=== PATIENT | female | born 1985 | race African-American/Black ===

== ENCOUNTER → 2023-11-28 | Outpatient (CLI) | payer OTHER, SELFPAY ==
--- NOTE | 2023-11-28 12:47 | RAD_ITS ---
STUDY: X-RAY - LEFT HAND REASON FOR EXAM: Female, 38 years old. Work injury. TECHNIQUE: 3 view(s) of the hand. COMPARISON: None. FINDINGS: Normal radiocarpal articulation. Normal distal radioulnar joint. Normal visualized carpal bones. Normal carpal articulations Normal carpometacarpal articulation of the thumb. Normal second through fifth carpometacarpal joints. Normal metacarpi. Normal metacarpophalangeal joint of the thumb. Normal interphalangeal joint of the thumb. Normal proximal and distal phalanges of the thumb. Normal metacarpophalangeal joints of the second through fifth fingers. Normal proximal and distal interphalangeal joints of the second through fifth fingers. Normal phalanges of the second through fifth fingers. Soft tissue swelling RAD/Hand Min 3 Views IMPRESSION: Soft tissue swelling. Electronically Signed: Anoop Joshua MD at 13:52 EDT ,
--- NOTE | 2023-11-28 12:47 | RAD_ITS ---
STUDY: X-RAY - LEFT WRIST REASON FOR EXAM: Female, 38 years old. Injury TECHNIQUE: 3 view(s) of the wrist were obtained. COMPARISON: None. FINDINGS: Normal visualized distal radius and ulna. Normal radiocarpal articulation. Normal distal radioulnar articulation. Normal carpal bones. Normal carpal articulations. Normal carpometacarpal articulation of the thumb. Normal second through fifth carpometacarpal articulations. Normal visualized metacarpal bones. The soft tissue structures are unremarkable. RAD/Wrist min 3 Views IMPRESSION: Normal x-ray examination of the wrist. Electronically Signed: Anoop Joshua MD at 13:54 EDT ,
== END | disposition home or self-care (01) ==
LOC: MTRAD 12:47
PROVIDERS: Referring Provider Physician Assistant Medical; Visit Provider Physician Assistant Medical
DX: T14.90XA Injury, unspecified, initial encounter (principal)
CPT/HCPCS: 73110; 73130

== ENCOUNTER 2024-01-06 10:27 | Emergency (ER) | payer MEDICAID, SELFPAY ==
[2024-01-06 10:28] VITALS: BP 159/100; PULSE 67; RESP 18; TEMP 36.4; O2SAT 100
--- NOTE | 2024-01-06 10:31 | NURSING ---
NO OLD EKGS
[2024-01-06 10:41] VITALS: O2SAT 98
--- NOTE | 2024-01-06 10:41 | EKG12_ITS ---
Test Reason : CP Blood Pressure : / mmHG Vent. Rate : 070 BPM Atrial Rate : 070 BPM P-R Int : 138 ms QRS Dur : 076 ms QT Int : 384 ms P-R-T Axes : 045 017 032 degrees QTc Int : 414 ms Normal sinus rhythm Normal ECG Confirmed by Flaquito Arango ([id number]), society editor ANIBAL JENKINS ([id number]) on 01/08/2024 10:29:23 AM Referred By: Confirmed By:Flaquito Arango
--- NOTE | 2024-01-06 10:45 | NURSING ---
NO OLD EKGS
--- NOTE | 2024-01-06 10:47 | ED.VIS.CHEST ---
HPI History of Present Illness Chief Complaint: Chest Pain Narrative Narrative: 38-year-old female who denies significant past medical history presents with chest pain that she has had intermittently over the last few weeks. States at times she will feel pressure in her chest. She has an occasional cough as well but states is not really a cough. She has to clear her throat and she produces mucus from it. No fevers or chills, no nausea or vomiting. She states she has intermittent headaches as well. She states she presents to the emergency department because she does not have a primary care provider, and wants to see what is wrong with her. [facility] Medical History Contusion of left thumb Home Medications ?Medication ?Instructions ?Recorded ?Last Taken ?Type NK 11/28/23 Unknown History Allergy/AdvReac Type Severity Reaction Status Date / Time No Known Allergies Allergy Verified 01/06/24 10:27 Social History Smoking Status: Never smoker ROS ROS ED ROS Narrative Constitutional: No fever, no chills. HEENT: No sore throat. No neck pain. No loss of vision. No rhinorrhea. Cardiovascular: Positive midsternal chest pressure/chest pain. Intermittent. None today. Last episode of chest pain was yesterday. No palpitations. No pedal edema. Respiratory: Occasional cough, has to clear her throat and produces mucus. No shortness of breath. Abdominal: No abdominal pain. No nausea. No vomiting. Genitourinary: No dysuria. No hematuria. Musculoskeletal: No myalgias. No arthralgias. Neurologic: Positive headaches. No dizziness. No lightheadedness. Skin: No rash. No change in color. Psychiatric: No depression. No anxiety. EXAM Physical Exam Narrative Exam Narrative: Afebrile. Vital signs noted. HEENT: Normocephalic. Atraumatic. PERRL, EOMI. Neck soft and supple. No point tenderness or step off. Cardiovascular: Regular rate and rhythm. No murmurs, rubs, or gallops appreciated. Respiratory: No tachypnea. Lungs clear to auscultation bilaterally. Gastrointestinal: Abdomen soft, nontender, with normoactive bowel sounds. No rebound or guarding. Neurological: Awake. Alert. Nonfocal, nonlateralizing. Skin: No rash. Normal color. No pallor. Musculoskeletal: No pedal edema. Full range of motion extremities. Const Vital Signs: 01/06/24 10:28 01/06/24 10:41 Temperature 97.5 F L Temperature Source Temporal Pulse Rate 67 Respiratory Rate 18 Blood Pressure 159/100 H Blood Pressure Mean 119 Pulse Ox 100 98 Oxygen Delivery Method Room Air Room Air MDM MDM MDM Narrative Medical decision making narrative: Differential diagnosis includes but not limited to ACS versus pulmonary embolism versus pneumonia versus pneumothorax. She may also be having hypertension exacerbation. Initially her blood pressure was 159/100 without evidence of previous diagnosis of hypertension. Pulse ox is 100% on room air and her pulse is 60 so I have low suspicion for pulmonary embolism and I do not feel that D-dimer is indicated as she is PERC negative. She denies any coronary artery disease risk factors. EKG was obtained and interpreted by self which demonstrates normal sinus rhythm at 70 bpm without ectopy or acute ST changes. No STEMI. I reviewed her laboratory work and she has normal white count of 5.4, hemoglobin normal at 13.6, platelet count normal at 192. Electrolyte panel is significant for an anion gap low at 3 with a glucose of 89. Lipase is normal at 36 so I doubt pancreatitis. Her high-sensitivity troponin is less than 3. I do not feel she needs serial enzymes as she is not currently having chest pain and her last chest pain was yesterday, over 6 hours ago. Chest x-ray 1 view interpreted by myself independently shows no evidence of any acute process, no pneumothorax, no pneumonia. I reviewed the radiology report which confirms my independent interpretation. At this point in time, she does have fluctuating blood pressure but is asymptomatic with it. I feel she can be discharged to follow-up with her primary care provider, who can confirm hypertension in the future. Hence, I do not feel that she requires being started on medication for elevated blood pressure reading currently. Patient was reassured. Return instructions to the emergency department were reviewed. Disposition is discharged home in stable condition. History & Record Review Discussion w/independent historian: Patient Lab Data Attestation: I reviewed the patient's lab results. Labs: Laboratory Results - last 24 hr 01/06/24 11:04 WBC 5.4 RBC 4.32 Hgb 13.6 Hct 39.9 MCV 92.4 MCH 31.5 MCHC 34.1 RDW Std Deviation 39.3 RDW Coeff of Mary 11.5 L Plt Count 192 MPV 10.1 Immature Gran % (Auto) 0.200 Neut % (Auto) 46.0 L Lymph % (Auto) 33.1 Quay % (Auto) 13.3 H Eos % (Auto) 6.3 H Baso % (Auto) 1.1 H Absolute Neuts (auto) 2.5 Absolute Lymphs (auto) 1.79 Nucleated RBC % 0 Sodium 138 Potassium 4.2 Chloride 107 Carbon Dioxide 28.0 Anion Gap 3 L BUN 18 Creatinine 1.01 Estim Creat Clear Calc 77.74 Est GFR (MDRD) Af Amer 79 Est GFR (MDRD) Non-Af 66 BUN/Creatinine Ratio 17.8 Glucose 89 Calcium 9.3 Troponin I High Sens < 3 L Lipase 36 Radiography Chest X-Ray - ED: 1 View, Read by ED Physician and Read by Radiologist Diagnostic Testing: Clinical Impression(s) from Imaging Studies Chest X-Ray 01/06/24 10:48 IMPRESSION: No radiographic evidence of acute cardiopulmonary disease. Electronically Signed: Santiago Campso MD at 11:41 EDT Reading Location ID and State: [facility] / [place] , Service support , Discharge Plan Triage Chief Complaint: Chest Pain ED Provider: Santiago Cruz Dx/Rx/DC Orders Clinical Impression: Chest pain, Elevated blood pressure reading Instructions: ED Chest Pain, Uncertain Cause, ED Hypertension, To Be Confirmed Prescriptions: No Action NK Primary Care Provider: Care Physician,No Primary Referrals: Fili Baker MD [Med Staff - Active Staff] - As soon as possible Care Physician,No Primary [Primary Care Provider] - Activity Restrictions/Additional Instructions: Return with increasing chest pain, shortness of breath, new or worsening symptoms. Print Language: Turkmen Disposition Disposition: Home, Self Care
--- NOTE | 2024-01-06 10:48 | RAD_ITS ---
EXAM: XR CHEST, 1 VIEW CLINICAL INDICATION: chest pain TECHNIQUE: Frontal view of the chest. COMPARISON: No relevant prior studies available. FINDINGS: LUNGS AND PLEURAL SPACES: Unremarkable. No consolidation or edema. No pneumothorax. No effusion. HEART: Unremarkable. Cardiac silhouette not enlarged. MEDIASTINUM: Central airways and mediastinal contour are unremarkable. BONES/JOINTS: Unremarkable. No acute fracture. SOFT TISSUES: Unremarkable. RAD/Chest 1 View (Portable) IMPRESSION: No radiographic evidence of acute cardiopulmonary disease. Electronically Signed: Santiago Campos MD at 11:41 EDT ,
[2024-01-06 11:08] LABS: Absolute Lymphocyte Count 1.79 X10^3/uL (0.83-4.51); Absolute Neutrophil Count 2.5 X10^3/uL (2.0-7.7); Basophil# 0.06 X10^3/uL; Basophil% 1.1 % (0-1); Eosinophil# 0.34 X10^3/uL; Eosinophils% 6.3 % (0-5); Hematocrit 39.9 % (37-47); Hemoglobin 13.6 g/dL (12.0-15.0); Lymphocyte # 1.79 X10^3/ul (0.83-4.51); Lymphocyte % 33.1 % (19-41); Mean Corp Hgb Conc 34.1 g/dL (32-36); Mean Corpuscular Hgb 31.5 pg (27.0-32.0); Mean Corpuscular Volume 92.4 fL (81-99); Mean Platelet Vol. 10.1 fl (6.2-12.0); Monocyte# 0.72 X10^3/uL; Monocyte% 13.3 % (0-10); NRBC Flagged by Analyzer 0 % (0-5); Neutrophil # 2.48 X10^3/uL (2.7-7.7); Platelet Count 192 K/mm3 (150-450); RBC Distribution Width CV 11.5 % (11.6-14.6); RBC Distribution Width SD 39.3 fl (35.1-43.9); Red Blood Count 4.32 M/mm3 (4.2-5.4); White Blood Count 5.4 K/mm3 (4.4-11.0)
[2024-01-06 11:32] LABS: Anion Gap 3 (5-15); BUN 18 mg/dL (7-18); BUN/Creat Ratio 17.8 RATIO (10-20); Calcium,Total 9.3 mg/dL (8.5-10.1); Chloride 107 mmol/L (98-107); Creatinine, Serum 1.01 mg/dL (0.55-1.02); EST Glomerular Filtration Rate 66 mL/min (>60); Est Glom Filt Rate - Afr Amer 79 mL/min (>60); Estimated Creatinine Clearance 77.74 ml/min; Glucose 89 mg/dL (74-106); Lipase 36 U/L (13-75); Potassium 4.2 mmol/L (3.5-5.1); Sodium Level 138 mmol/L (136-145); Troponin-I HS < 3 pg/mL (3.0-54.0)
[2024-01-06 11:59] VITALS: BP 165/99; PULSE 69; RESP 19; TEMP 36.7; O2SAT 100
== END 2024-01-06 12:02 | disposition home or self-care (01) ==
PROVIDERS: Emergency Provider Emergency Medicine; Visit Provider Emergency Medicine
DX: R07.9 Chest pain, unspecified (principal); R03.0 Elevated blood-pressure reading, without diagnosis of hypertension
CPT/HCPCS: 71045; 80048; 83690; 84484; 85025; 93005; 99283; A4216

== ENCOUNTER 2024-08-17 14:32 | Emergency (ER) | payer MEDICAID, SELFPAY ==
[2024-08-17 14:33] VITALS: BP 165/60; PULSE 64; RESP 15; TEMP 36.2; O2SAT 100; BMI 28.8
--- NOTE | 2024-08-17 14:53 | ED.VIS.CHEST ---
HPI <NIDIA Herrera - Last Filed: 08/17/24 16:38> History of Present Illness Chief Complaint: Chest Other Narrative Narrative: Patient presenting today with concerns for gastric reflux that she has had over the past week. She reports that she occasionally has a midsternal burning sensation that radiates into her throat, she will frequently develop white-colored mucus in the back of her throat that she has to cough up. Her symptoms are worse when she is hungry and has not eaten in several hours, she also will have intermittent epigastric abdominal pain. She denies having any abdominal pain at this time. She does admit to eating a lot of spicy and fried foods. She denies fevers, chills, stool changes, melena, shortness of breath, nausea, and vomiting. PE Risk Factors: Negative for Recent Travel/Surgery, Recent Immobilization, Prior DVT or PE or Cancer PFS <NIDIA Herrera - Last Filed: 08/17/24 16:38> [facility] Medical History Contusion of left thumb Home Medications ?Medication ?Instructions ?Recorded ?Last Taken ?Type pantoprazole 40 mg tablet,delayed 40 mg PO DAILY #30 tabs 08/17/24 Unknown Rx release (Protonix) Allergy/AdvReac Type Severity Reaction Status Date / Time No Known Allergies Allergy Verified 08/17/24 14:36 Social History Smoking Status: Never smoker ROS <NIDIA Herrera - Last Filed: 08/17/24 16:38> ROS ED Constitutional Constitutional ED: Denies chills or fever(s) Cardiovascular Cardiovascular: Denies chest pain or palpitations Respiratory/Chest Respiratory/Chest: Denies dyspnea Gastrointestinal Gastrointestinal: Reports heartburn; Denies abdominal pain, constipation, diarrhea, melena, nausea or vomiting Genitourinary Genitourinary ED: Denies dysuria, hematuria or urinary urgency Musculoskeletal Musculoskeletal: Denies arthralgias or myalgias Integumentary Denies rash Neurologic Neurologic: Denies weakness EXAM <NIDIA Herrera - Last Filed: 08/17/24 16:38> Physical Exam Const Vital Signs: 08/17/24 14:33 08/17/24 14:48 08/17/24 16:29 Temperature 97.2 F L 98 F Temperature Source Temporal Pulse Rate 64 63 Respiratory Rate 15 15 Respiratory Effort Normal Respiratory Pattern Normal Blood Pressure 165/60 H 165/85 H Blood Pressure Mean 95 111 Pulse Ox 100 100 Oxygen Delivery Method Room Air Positive well nourished, well developed and no apparent distress General Appearance ED: well developed HEENT Reports normocephalic and head/scalp atraumatic Mouth ED: Yes moist mucous membranes normal Eyes PERRL and EOMs intact bilaterally Neck full ROM and supple Chest Wall inspection of chest normal Resp normal respiratory effort and clear to auscultation bilaterally Cardio regular rate and regular rhythm GI soft to palpation, non-tender, non-distended and no masses Back/Spine normal ROM and normal to inspection Extremity normal to inspection and full ROM Neuro oriented x3, CN's II-XII intact bilaterally, moves all extremities, no focal motor deficits and no sensory deficits noted Sensorium / Orientation: awake and alert Psych mental status grossly normal and thought process normal Skin no rashes or lesions noted and no wounds <Dr. Tylor Richard DO - Last Filed: 08/17/24 17:30> Physical Exam Const Vital Signs: 08/17/24 14:33 08/17/24 14:48 08/17/24 16:29 Temperature 97.2 F L 98 F Temperature Source Temporal Pulse Rate 64 63 Respiratory Rate 15 15 Respiratory Effort Normal Respiratory Pattern Normal Blood Pressure 165/60 H 165/85 H Blood Pressure Mean 95 111 Pulse Ox 100 100 Oxygen Delivery Method Room Air [facility] <NIDIA Herrera - Last Filed: 08/17/24 16:38> [facility] Narrative Medical decision making narrative: Patient presenting today due to gastric reflux she has had intermittently over the past week. She reports a midsternal burning sensation that radiates into the back of her throat, she develops a lot of mucus in the back of her throat that she has to cough up. Her symptoms are worse when her stomach is empty and occasionally after eating. She does admit to eating a lot of spicy and fried foods. Her pain does not sound cardiac in nature, she is PERC negative, low suspicion for PE. Examination does sound consistent with gastric reflux. She occasionally has epigastric abdominal pain but denies having any abdominal pain at this time, her abdomen is soft and nontender. CBC and CMP were obtained and are unremarkable. She was given a GI cocktail and Pepcid and reports improvement of her symptoms on reexamination. I will give her a prescription for Protonix. Dietary modifications were discussed with her, recommended she not eat anything at least 3 hours before bed. She does not have a PCP but I have given her a referral for one and recommended she call Monday to set up a appointment. She will be discharged home in stable condition. Lab Data Attestation: I reviewed the patient's lab results. Labs: Laboratory Results - last 24 hr 08/17/24 15:21 WBC 6.1 RBC 4.00 L Hgb 12.9 Hct 37.8 MCV 94.5 MCH 32.3 H MCHC 34.1 RDW Std Deviation 41.1 RDW Coeff of Mary 11.8 Plt Count 185 MPV 11.0 Immature Gran % (Auto) 0.200 Neut % (Auto) 46.9 L Lymph % (Auto) 36.7 Ferry % (Auto) 9.7 Eos % (Auto) 5.3 H Baso % (Auto) 1.2 H Absolute Neuts (auto) 2.9 Absolute Lymphs (auto) 2.23 Nucleated RBC % 0 Sodium 139 Potassium 3.9 Chloride 104 Carbon Dioxide 27.0 Anion Gap 9 BUN 14 Creatinine 1.07 Estim Creat Clear Calc 71.94 Est GFR (MDRD) Non-Af 69 BUN/Creatinine Ratio 13.1 Glucose 90 Calcium 9.4 Total Bilirubin 0.29 AST 23 ALT 13 Alkaline Phosphatase 67 Total Protein 7.2 Albumin 4.1 Globulin 3.0 Albumin/Globulin Ratio 1.4 <Dr. Tylor Richard, DO - Last Filed: 08/17/24 17:30> [facility] Narrative Medical decision making narrative: Patient presenting today due to gastric reflux she has had intermittently over the past week. She reports a midsternal burning sensation that radiates into the back of her throat, she develops a lot of mucus in the back of her throat that she has to cough up. Her symptoms are worse when her stomach is empty and occasionally after eating. She does admit to eating a lot of spicy and fried foods. Her pain does not sound cardiac in nature, she is PERC negative, low suspicion for PE. Examination does sound consistent with gastric reflux. She occasionally has epigastric abdominal pain but denies having any abdominal pain at this time, her abdomen is soft and nontender. CBC and CMP were obtained and are unremarkable. She was given a GI cocktail and Pepcid and reports improvement of her symptoms on reexamination. I will give her a prescription for Protonix. Dietary modifications were discussed with her, recommended she not eat anything at least 3 hours before bed. She does not have a PCP but I have given her a referral for one and recommended she call Monday to set up a appointment. She will be discharged home in stable condition. Supervisory Physician Note Patient was seen and examined with the Advanced Practice Provider. Nursing notes and vital signs have been reviewed. Pertinent old records have been reviewed. I agree with the essential elements of the KUN's history, physical exam, assessment, and plan. The differential diagnosis and management options were discussed with the KUN. I participated in determining and agree with the management, procedures, final impression and disposition as documented. See changes noted by me. Please see addendum or separate note for any additional details. Impression: 1. GERD Lab Data Labs: Laboratory Results - last 24 hr 08/17/24 15:21 WBC 6.1 RBC 4.00 L Hgb 12.9 Hct 37.8 MCV 94.5 MCH 32.3 H MCHC 34.1 RDW Std Deviation 41.1 RDW Coeff of Mary 11.8 Plt Count 185 MPV 11.0 Immature Gran % (Auto) 0.200 Neut % (Auto) 46.9 L Lymph % (Auto) 36.7 Ferry % (Auto) 9.7 Eos % (Auto) 5.3 H Baso % (Auto) 1.2 H Absolute Neuts (auto) 2.9 Absolute Lymphs (auto) 2.23 Nucleated RBC % 0 Sodium 139 Potassium 3.9 Chloride 104 Carbon Dioxide 27.0 Anion Gap 9 BUN 14 Creatinine 1.07 Estim Creat Clear Calc 71.94 Est GFR (MDRD) Non-Af 69 BUN/Creatinine Ratio 13.1 Glucose 90 Calcium 9.4 Total Bilirubin 0.29 AST 23 ALT 13 Alkaline Phosphatase 67 Total Protein 7.2 Albumin 4.1 Globulin 3.0 Albumin/Globulin Ratio 1.4 Discharge Plan Triage Chief Complaint: Chest Other ED Midlevel Provider: Heather Echeverria ED Provider: Tylor Richard Dx/Rx/DC Orders Clinical Impression: GERD (gastroesophageal reflux disease) Instructions: ED GERD (Adult) Prescriptions: New pantoprazole [Protonix] 40 mg tablet,delayed release (DR/EC) 40 mg PO DAILY Qty: 30 0RF Primary Care Provider: Care Physician,No Primary Referrals: Sharla Weeks DO [Med Staff - Application Development Director] - 1 Week Care Physician,No Primary [Primary Care Provider] - Activity Restrictions/Additional Instructions: Please follow-up with a PCP and return for any worsening symptoms. Please try to avoid spic and greasy foods. Try not to eat less than 3 hours before bed. Print Language: Spanish Disposition Disposition: Home, Self Care Discharge Date/Time: 08/17/24 16:30
[2024-08-17] MEDS: Famotidine 20 MG Tablet PO (14:58)
[2024-08-17] MEDS: Mag Hydrox/Al Hydrox/Simeth 30 ML UDC PO (14:59)
[2024-08-17] MEDS: Lidocaine 2% Viscous15 ML UDC 15 ML PO (14:59)
[2024-08-17 15:28] LABS: Absolute Lymphocyte Count 2.23 X10^3/uL (0.83-4.51); Absolute Neutrophil Count 2.9 X10^3/uL (2.0-7.7); Basophil# 0.07 X10^3/uL; Basophil% 1.2 % (0-1); Eosinophil# 0.32 X10^3/uL; Eosinophils% 5.3 % (0-5); Hematocrit 37.8 % (37-47); Hemoglobin 12.9 g/dL (12.0-15.0); Lymphocyte # 2.23 X10^3/ul (0.83-4.51); Lymphocyte % 36.7 % (19-41); Mean Corp Hgb Conc 34.1 g/dL (32-36); Mean Corpuscular Hgb 32.3 pg (27.0-32.0); Mean Corpuscular Volume 94.5 fL (81-99); Monocyte# 0.59 X10^3/uL; Monocyte% 9.7 % (0-10); NRBC Flagged by Analyzer 0 % (0-5); Neutrophil # 2.85 X10^3/uL (2.7-7.7); Neutrophil % 46.9 % (47-70); Platelet Count 185 K/mm3 (150-450); RBC Distribution Width CV 11.8 % (11.6-14.6); RBC Distribution Width SD 41.1 fl (35.1-43.9); White Blood Count 6.1 K/mm3 (4.4-11.0)
[2024-08-17 15:57] LABS: ALB/GLOB Ratio 1.4 RATIO (0.9-2.4); AST(SGOT) 23 U/L (<=31); Alanine Aminotransfer ALT/SGPT 13 U/L (<=34); Albumin, Serum 4.1 g/dL (3.5-5.0); Alkaline Phosphatase 67 U/L (35-104); Anion Gap 9 (5-15); BUN 14 mg/dL (4-19); BUN/Creat Ratio 13.1 RATIO (10-20); Calcium,Total 9.4 mg/dL (7.6-11.0); Chloride 104 mmol/L (98-108); Creatinine, Serum 1.07 mg/dL (0.70-1.20); EST Glomerular Filtration Rate 69 (>60); Estimated Creatinine Clearance 71.94 ml/min (50-250); Glucose 90 mg/dL (70-99); Potassium 3.9 mmol/L (3.3-5.1); Protein, Total 7.2 g/dL (5.9-8.4); Sodium Level 139 mmol/L (133-145); Total Bilirubin 0.29 mg/dL (0.00-1.30)
[2024-08-17 16:29] VITALS: BP 165/85; PULSE 63; RESP 15; TEMP 36.6; O2SAT 100
== END 2024-08-17 16:30 | disposition home or self-care (01) ==
PROVIDERS: Physician Assistant; Emergency Provider Surgery; Referring Provider Surgery; Visit Provider Surgery
DX: K21.9 Gastro-esophageal reflux disease without esophagitis (principal)
CPT/HCPCS: 80053; 85025; 99284; A4216

== ENCOUNTER 2024-11-28 07:56 | Emergency (ER) | payer SELFPAY ==
[2024-11-28 07:57] VITALS: BP 169/87; PULSE 76; RESP 16; TEMP 37; O2SAT 100; BMI 28.5
--- NOTE | 2024-11-28 08:53 | EX.ED.DYSGE1 ---
HPI History of Present Illness Chief Complaint: General Illness Narrative Narrative: Patient is a 39-year-old female with no known significant past medical history not on any daily medications who presented to the emergency department the chief complaint of chest pain and left shoulder pain. Patient states that for the past few days she has not felt right she feels fatigued and notes that she is developing chest pain when she is walking. Patient notes that she is on control but denies any recent travel history denies any smoking history denies any history of blood clots. 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 Patient does not recall any specific injuries however to cause her pain. She states that her pain does get better when she sits down and rests. Patient denies any early history of cardiac or heart attack. Patient states that she does drink wine occasionally but denies any smoking or alcohol or drug use. It is noted in triage note that she is complaining of dizziness she is not dizzy after clarification she is developing lightheadedness. [facility] Medical History Contusion of left thumb Home Medications ?Medication ?Instructions ?Recorded ?Last Taken ?Type pantoprazole 40 mg tablet,delayed 40 mg PO DAILY #30 tabs 08/17/24 Unknown Rx release (Protonix) amlodipine 5 mg tablet 5 mg PO DAILY 30 days #30 tabs 11/28/24 Unknown Rx Allergy/AdvReac Type Severity Reaction Status Date / Time No Known Allergies Allergy Verified 11/28/24 07:57 Social History Smoking Status: Never smoker ROS ROS ED ROS Narrative Constitutional: Denies any fevers, chills, headaches Eyes: Denies double vision blurry vision changes vision Cardiovascular: Complains of chest pain as noted above denies palpitations Respiratory: Denies coughing wheezing shortness of breath Abdomen: Denies abdominal pain nausea vomit diarrhea : Denies any urinary symptoms Neurological: Denies any numbness, weakness, tingling Musculoskeletal: Complains of left shoulder pain as noted above Skin: Complains of peeling to the back of her hand denies any other rashes or lesions EXAM Physical Exam Narrative Exam Narrative: General: Patient is lying in bed rest comfortably did not appear to be acute distress Head: Atraumatic, normocephalic Eyes: PERRL bilaterally, EOMI blood, no conjunctival injection noted Neck: Soft, supple, trachea midline Cardiovascular: Regular rate and rhythm no murmurs gallops rubs noted Respiratory: Clear to auscultation bilaterally no rales rhonchi or wheezes noted Abdomen: Soft, nondistended, nontender to palpation Extremities: +5/5 strength noted in the bilateral upper and lower extremities, radial pulse +2/4 and about extremities Neurological: Patient commands and that she was at [facility] year is 2024 Skin: Warm, dry, intact no rashes or lesions noted Const Vital Signs: 11/28/24 07:57 11/28/24 08:28 11/28/24 09:56 Temperature 98.6 F Temperature Source Oral Pulse Rate 76 61 Respiratory Rate 16 17 Blood Pressure 169/87 H 151/79 H Blood Pressure Mean 114 103 Pulse Ox 100 Oxygen Delivery Method Room Air Room Air 11/28/24 11:00 Temperature Temperature Source Pulse Rate 65 Respiratory Rate 17 Blood Pressure 197/96 H Blood Pressure Mean 129 Pulse Ox Oxygen Delivery Method MDM MDM MDM Narrative Medical decision making narrative: Patient is a 39-year-old female who presented to the emergency department with a chief complaint of left chest pain rating to her left arm and left shoulder pain. On the differential diagnose includes but not limited to ACS, pneumonia, angina, hypertensive emergency, hyperthyroidism, hypothyroidism. Once workup is obtained reviewed she will be reevaluated. Patient to give 1 L of IV fluids. Patient's CBC was reviewed was largely unremarkable no evidence leukocytosis white blood count 4.7, he was 13.3, plate count 167. Patient sodium normal 130, potassium normal 4.1, creatinine was 1.06. Patient's troponin was less than 6 with a delta troponin of less than 6, EKG showed sinus rhythm with a rate of 64 bpm. Patient TSH normal 1.15, free T4 and T3 normal at 1 and 2.6 respectively. Patient's x-ray of her shoulders bilaterally reviewed by myself and by radiology showed no acute fractures or dislocations. Patient chest x-ray reviewed by myself and by radiology showed no acute cardiopulmonary processes. HEART Score for Major Cardiac Events from [email or web address] on 11/28/2024 All calculations should be rechecked by clinician prior to use RESULT SUMMARY: 2 points Low Score (0-3 points) Risk of MACE of 0.9-1.7%. INPUTS: History ?> 0 = Slightly suspicious EKG ?> 1 = Non-specific repolarization disturbance Age ?> 0 = <45 Risk factors ?> 1 = 1-2 risk factors Initial troponin ?> 0 = <=ormal limit Patient ambulated well here in the emergency department without any hypoxia tachycardia. Patient has been persistently hypertensive in the emergency department we will start her on 5 mg of amlodipine and she was advised to follow-up with a doctor that she does not have which she was referred to 1. She is also advised to follow-up with orthopedics for her left shoulder. She is encouraged return with worsening symptoms or concerns. She is agreeable this plan all question concerns answered she was discharged home in stable condition. Patient did request a work note which was provided. Lab Data Labs: Laboratory Results - last 24 hr 11/28/24 11/28/24 09:10 11:25 WBC 4.7 RBC 4.11 L Hgb 13.3 Hct 38.0 MCV 92.5 MCH 32.4 H MCHC 35.0 RDW Std Deviation 41.1 RDW Coeff of Mary 12.0 Plt Count 167 MPV 11.0 Immature Gran % (Auto) 0.000 Neut % (Auto) 39.5 L Lymph % (Auto) 45.2 H Moody % (Auto) 9.8 Eos % (Auto) 4.7 Baso % (Auto) 0.8 Absolute Neuts (auto) 1.9 L Absolute Lymphs (auto) 2.13 Nucleated RBC % 0 Sodium 138 Potassium 4.1 Chloride 104 Carbon Dioxide 23.2 Anion Gap 10 BUN 18 Creatinine 1.06 Estim Creat Clear Calc 71.64 Est GFR (MDRD) Non-Af 69 BUN/Creatinine Ratio 17.2 Glucose 84 Calcium 9.5 Troponin T High Sens < 6 Troponin T Hi Sens 2 Hr < 6 TSH 1.150 Free T4 1.00 Free T3 pg/dL 2.6 Radiography Diagnostic Testing: Clinical Impression(s) from Imaging Studies Chest X-Ray 11/28/24 09:00 IMPRESSION: No acute cardiopulmonary process. Reading Location: [facility] Shoulder X-Ray 11/28/24 09:00 IMPRESSION: No acute fracture. Reading Location: [facility] Shoulder X-Ray 11/28/24 09:31 IMPRESSION: NO ACUTE FRACTURE OR DISLOCATION. Reading [facility] Discharge Plan Triage Chief Complaint: General Illness ED Provider: Fito Mason Dx/Rx/DC Orders Clinical Impression: Chest pain, Left shoulder pain, Lightheaded Prescriptions: New amlodipine 5 mg tablet 5 mg PO DAILY 30 Days Qty: 30 0RF No Action pantoprazole [Protonix] 40 mg tablet,delayed release (DR/EC) 40 mg PO DAILY Qty: 30 0RF Stand Alone Forms: ED Work / School Excuse Primary Care Provider: Care Physician,No Primary Referrals: Care Physician,No Primary [Primary Care Provider] - Byron Spivey MD [Med Staff - Active Staff] - Joana Bethea LEAD BURNER-C [[facility]] - Activity Restrictions/Additional Instructions: Take blood pressure medication as prescribed keep a blood pressure log by randomly taking your blood pressure 2-3 times a day. Take this log to your primary care doctor that you referred to further review. Return with worsening symptoms or any concerns. Follow-up with orthopedics they referred you for your left shoulder. Ice, and rotate Tylenol and ibuprofen [id number] for pain control when you do that she can take something every 3 hours for pain max dose of Tylenol in 24 hours 4000 mg. Max dose of ibuprofen in 24 hours 3200 mg. Your blood work did not show any acute findings today. Your x-rays were normal. Print Language: Honduran Disposition Disposition: Home, Self Care
--- NOTE | 2024-11-28 09:00 | RAD_ITS ---
EXAM: XR Chest, 2 Views CLINICAL INDICATION: CHEST PAIN TECHNIQUE: Frontal and lateral views of the chest. COMPARISON: No relevant prior studies available. FINDINGS: LUNGS AND PLEURAL SPACES: Unremarkable. No consolidation. No pneumothorax. HEART: Unremarkable. No cardiomegaly. MEDIASTINUM: Unremarkable. Normal mediastinal contour. BONES/JOINTS: Unremarkable. No acute fracture. RAD/Chest PA and Lateral IMPRESSION: No acute cardiopulmonary process. Reading Location: [facility]
--- NOTE | 2024-11-28 09:00 | RAD_ITS ---
EXAM: XR Right Shoulder Complete, 2 or More Views CLINICAL INDICATION: PAIN, NO INJURY TECHNIQUE: Two or more views of the right shoulder. COMPARISON: No relevant prior studies available. FINDINGS: BONES/JOINTS: Unremarkable. No acute fracture. No dislocation. SOFT TISSUES: Unremarkable. RAD/Shoulder min 2 Views IMPRESSION: No acute fracture. Reading [facility]
[2024-11-28 09:23] LABS: Hematocrit 38.0 % (37-47); Hemoglobin 13.3 g/dL (12.0-15.0); Immature Granulocytes Count 0.000 X10^3/uL (0.0-0.0); Mean Corp Hgb Conc 35.0 g/dL (32-36); Mean Corpuscular Volume 92.5 fL (81-99); Mean Platelet Vol. 11.0 fl (6.2-12.0); NRBC Flagged by Analyzer 0 % (0-5); Platelet Count 167 K/mm3 (150-450); RBC Distribution Width CV 12.0 % (11.6-14.6); RBC Distribution Width SD 41.1 fl (35.1-43.9); Red Blood Count 4.11 M/mm3 (4.2-5.4); White Blood Count 4.7 K/mm3 (4.4-11.0)
[2024-11-28] MEDS: 0.9% Normal Saline (1000mL) 1,000 ML 999 ML IV (09:29)
--- NOTE | 2024-11-28 09:31 | RAD_ITS ---
PROCEDURE: SHOULDER MIN 2 VIEWS 11/28/2024 REASON FOR EXAM: PAIN Left shoulder pain. TECHNIQUE: SHOULDER MIN 2 VIEWS. Left shoulder. COMPARISON: None FINDINGS: Bones: No fracture is seen. Joints: Normal alignment. Joint spaces preserved. No arthropathic features. Soft tissues: Soft tissues are unremarkable. Other: RAD/Shoulder min 2 Views IMPRESSION: NO ACUTE FRACTURE OR DISLOCATION. Reading Location: [facility]
[2024-11-28 09:51] LABS: Anion Gap 10 (5-15); BUN 18 mg/dL (4-19); BUN/Creat Ratio 17.2 RATIO (10-20); Calcium,Total 9.5 mg/dL (7.6-11.0); Carbon Dioxide 23.2 mmol/L (21.0-32.0); Chloride 104 mmol/L (98-108); Estimated Creatinine Clearance 71.64 ml/min (50-250); Free T3 2.6 pg/mL (2.18-3.98); Glucose 84 mg/dL (70-99); Potassium 4.1 mmol/L (3.3-5.1); Troponin T High Sensitivity < 6 ng/L (<=14)
[2024-11-28 09:56] VITALS: BP 151/79; PULSE 61; RESP 17
[2024-11-28 10:08] VITALS: O2SAT 100
[2024-11-28 11:00] VITALS: BP 197/96; PULSE 65; RESP 17
[2024-11-28 11:49] LABS: Troponin T High Sens 2 HR < 6 ng/L (<=14)
[2024-11-28 13:00] VITALS: BP 112/62; PULSE 68; RESP 14; O2SAT 99
[2024-11-28 13:27] VITALS: BP 109/75; PULSE 76; RESP 14; TEMP 36.3; O2SAT 99
== END 2024-11-28 13:32 | disposition home or self-care (01) ==
PROVIDERS: Emergency Provider Emergency Medicine; Visit Provider Emergency Medicine
DX: M25.512 Pain in left shoulder (principal); M79.602 Pain in left arm; R07.9 Chest pain, unspecified; R42 Dizziness and giddiness
CPT/HCPCS: 71046; 73030; 80048; 84439; 84443; 84481; 84484; 85025; 93005; 96360; 96361; 99284; A4216

== ENCOUNTER 2025-02-27 09:07 | Emergency (ER) | payer SELFPAY ==
[2025-02-27 09:08] VITALS: BP 171/94; PULSE 64; RESP 16; TEMP 36.5; O2SAT 99; BMI 28.0
--- NOTE | 2025-02-27 09:31 | EKG12_ITS ---
Test Reason : NEURO Blood Pressure : */* mmHG Vent. Rate : 66 BPM Atrial Rate : 66 BPM P-R Int : 144 ms QRS Dur : 72 ms QT Int : 398 ms P-R-T Axes : 35 39 35 degrees QTcB Int : 417 ms Normal sinus rhythm with sinus arrhythmia Normal ECG Confirmed by PITA SPENCER, USMAN ([id number]), editorial clerk AYAH MILLER ([id number]) on 02/28/2025 8:31:22 AM Referred By: Confirmed By: USMAN LEMA MD
--- NOTE | 2025-02-27 10:00 | CT_ITS ---
PROCEDURE: CTA HEAD AND NECK W/ CONTRAST 02/27/2025 REASON FOR EXAM: LEFT ARM PARESTHESIA TECHNIQUE: Procedure Code: CTCTA.HDNCK Modality: CT Procedure: CTA HEAD AND NECK W/ CONTRAST Multiplanar Sagittal and Coronal images were obtained. 3D post processing was performed CONTRAST: Isovue-300 VOLUME: 100 mL One or more dose reduction techniques were used (e.g., Automated exposure control, adjustment of the mA and/or kV according to patient size, use of iterative reconstruction technique). RADIATION DOSE SUMMARY: CTDlvol: 31.7 mGy DLP: 1245.3 mGycm COMPARISON: Prior CT scan of the head done earlier in the day. FINDINGS: Aortic Arch: Normal size and branching pattern. No significant atherosclerotic plaque. Brachiocephalic and Subclavians: Unremarkable RIGHT Carotid: Right CCA: Unremarkable. Right ICA: Unremarkable. Right ECA: Unremarkable. LEFT Carotid: Left CCA: Unremarkable. Left ICA: Unremarkable. Left ECA: Unremarkable. Vertebrals: Codominant. Arise from the subclavians. Both vertebrals form the basilar. RIGHT Vertebral: Unremarkable. LEFT Vertebral: Unremarkable. Anatomy: [place] of [place] anatomy is normal. Aneurysm or avm: No intracranial aneurysms or large vascular malformations are identified. Anterior cerebral arteries: Unremarkable: Middle cerebral arteries: Unremarkable. Basilar artery: Unremarkable. Posterior cerebral arteries: Unremarkable. Other major branches of the posterior circulation: Unremarkable. Major venous structures: Unremarkable. Other findings: Neck: Lungs: Bones: CT/CTA Head AND Neck W/ Contrast IMPRESSION: Unremarkable examination. Reading Location: [place] [id number]
--- NOTE | 2025-02-27 10:00 | CT_ITS ---
PROCEDURE: BRAIN/HEAD WITHOUT CONTRAST 02/27/2025 REASON FOR EXAM: LEFT ARM PARESTHESIA TECHNIQUE: Procedure Code: CTBR Modality: CT Procedure: BRAIN/HEAD WITHOUT CONTRAST Coronal and Sagittal reconstruction series were provided. One or more dose reduction techniques were used (e.g., Automated exposure control, adjustment of the mA and/or kV according to patient size, use of iterative reconstruction technique. RADIATION DOSE SUMMARY: CTDlvol: 45 mGy DLP: 748 mGycm COMPARISON: February 27, 2025 FINDINGS: Brain: There is no evidence of hemorrhage, acute ischemia or mass. No extra- axial fluid collection, midline shift or mass effect. CSF Spaces: Normal Sinuses/Mastoids: Clear Bones: No fracture CT/Brain/Head without Contrast IMPRESSION: No acute intracranial abnormality. Reading Location: [id number]
--- NOTE | 2025-02-27 10:04 | EDS_ITS ---
HPI History of Present Illness Chief Complaint: Numb/Ting Narrative Narrative: Chief complaint and HPI: 39-year-old female with past medical history of HTN but noncompliant with medication presents for evaluation of left arm paresthesias. Patient states yesterday while working she developed paresthesias in the left arm. 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 She denies any injury or trauma. Denies any neck pain. She denies any weakness, aphasia, dysarthria. States her blood pressure has been elevated at home. States that she was diagnosed with hypertension in which she was prescribed antihypertensives but never followed up with a PCP to have the medication refilled. She denies any fever, chills, headache, URI symptoms, back pain, arm pain, chest pain, shortness of breath, nausea, vomiting. States she has been eating and drinking well. She is right-handed. Review of systems: See HPI Medications: As listed on the chart Allergies: As listed on the chart PFSH: Per chart Vital signs: As listed on the chart. Reviewed. Physical exam: Gen: A&O x3, NAD Head: Normocephalic, atraumatic Eyes: No sclera icterus, conjunctiva clear, PERRL, EOMI ENT: Moist mucous membranes, No facial asymmetry Neck: Trachea midline, No JVD, nontender, no bony step-offs, full range of motion, no carotid bruits CV: RRR, no murmurs, no peripheral edema Resp: Lungs CTA BL, no w/r/c GI: Abd soft, non-distended, non-tender, no r/r/g Musc: Full ROM, no deformity, strength +5/5 in all extremities, no pronator drift, no ataxia, DTR +2/5, radial pulses +2 bilaterally, good capillary refill, DP/PT pulses +2 bilaterally, phalen's test negative, patient has tenderness to palpation of the lateral epicondyle however does not make her paresthesias worse with palpation Skin: Warm, dry, intact Neuro: Alert, oriented, sensation intact despite her paresthesias Psych: Cooperative, appropriate mood and affect [facility] Medical History Contusion of left thumb Allergy/AdvReac Type Severity Reaction Status Date / Time No Known Allergies Allergy Verified 02/27/25 09:08 Social History Smoking Status: Never smoker EXAM Physical Exam Const Vital Signs: 02/27/25 09:08 02/27/25 10:08 Temperature 97.7 F L Temperature Source Temporal Pulse Rate 64 84 Respiratory Rate 16 21 H Blood Pressure 171/94 H 180/96 H Blood Pressure Mean 119 124 Pulse Ox 99 100 Oxygen Delivery Method Room Air Room Air MDM MDM MDM Narrative Medical decision making narrative: 39-year-old female with past medical history of HTN but noncompliant with medication presents for evaluation of left arm paresthesias. Patient states yesterday while working she developed paresthesias in the left arm. 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 She denies any injury or trauma. Denies any neck pain. She denies any weakness, aphasia, dysarthria. States her blood pressure has been elevated at home. States that she was diagnosed with hypertension in which she was prescribed antihypertensives but never followed up with a PCP to have the medication refilled. See physical exam findings. On presentation, vitals are stable other than hypertension with a blood pressure 171/94. Differential diagnosis includes but is not limited to peripheral neuropathy, radiculopathy, hypertension urgency, hypertension emergency, suspect less likely intracranial/CVA pathology. NS bolus and hydralazine ordered. Hypertension workup ordered including CT head and CTA head and neck. CBC without leukocytosis or anemia. BMP unremarkable. Magnesium unremarkable. Troponin unremarkable. CT of the head shows no acute intracranial abnormality. CTA head and neck unremarkable. On reevaluation, patient's blood pressure has improved with SBP in the 150s. She states the paresthesias in her arm have almost completely resolved. I suspect her symptoms likely secondary to hypertension urgency. Will start her on amlodipine, first dose given here. She is to follow-up with the primary care physician. Continue to monitor blood pressure at home. Will also refer her to neurology in case there is a component of peripheral neuropathy. She confirmed understand the plan. Return precautions explained. Patient will discharge home. EKG: Interpreted by me/EM physician: EKG shows shows sinus arrhythmia without any acute ischemic changes. Heart rate 66. Diagnostic: Interpreted by me/EM physician: Chest x-ray without pneumonia, effusion, cardiomegaly, pneumothorax. Radiology in agreement. Impression: 1. Hypertension urgency with history of hypertension not on medication 2. Left arm paresthesias, improved Lab Data Labs: Laboratory Results - last 24 hr 02/27/25 09:56 WBC 5.2 RBC 4.08 L Hgb 13.3 Hct 37.6 MCV 92.2 MCH 32.6 H MCHC 35.4 RDW Std Deviation 39.0 RDW Coeff of Mary 11.5 L Plt Count 184 MPV 10.8 Immature Gran % (Auto) 0.000 Neut % (Auto) 42.3 L Lymph % (Auto) 43.4 H Coke % (Auto) 9.8 Eos % (Auto) 3.9 Baso % (Auto) 0.6 Absolute Neuts (auto) 2.2 Absolute Lymphs (auto) 2.25 Nucleated RBC % 0 Sodium 138 Potassium 4.1 Chloride 103 Carbon Dioxide 26.5 Anion Gap 9 BUN 15 Creatinine 0.94 Estim Creat Clear Calc 79.98 Est GFR (MDRD) Non-Af 79 BUN/Creatinine Ratio 16.1 Glucose 87 Calcium 9.2 Magnesium 2.1 Troponin T High Sens 8 D Radiography Diagnostic Testing: Clinical Impression(s) from Imaging Studies Brain CT 02/27/25 10:00 IMPRESSION: No acute intracranial abnormality. Reading Location: [facility] Head/Neck CTA 02/27/25 10:00 IMPRESSION: Unremarkable examination. Reading Location: [facility] Chest X-Ray 02/27/25 10:15 IMPRESSION: No acute process is identified in the chest. Reading Location: [facility] Discharge Plan Triage Chief Complaint: Numb/Ting ED Provider: Tylor Richard Dx/Rx/DC Orders Primary Care Provider: Care Physician,No Primary Referrals: Care Physician,No Primary [Primary Care Provider, Medical] Print Language: Ukrainian
[2025-02-27 10:05] LABS: Hematocrit 37.6 % (37-47); Hemoglobin 13.3 g/dL (12.0-15.0); Immature Granulocytes Count 0.000 X10^3/uL (0.0-0.0); Mean Corp Hgb Conc 35.4 g/dL (32-36); Mean Corpuscular Volume 92.2 fL (81-99); Mean Platelet Vol. 10.8 fl (6.2-12.0); NRBC Flagged by Analyzer 0 % (0-5); Platelet Count 184 K/mm3 (150-450); RBC Distribution Width CV 11.5 % (11.6-14.6); RBC Distribution Width SD 39.0 fl (35.1-43.9); Red Blood Count 4.08 M/mm3 (4.2-5.4); White Blood Count 5.2 K/mm3 (4.4-11.0)
[2025-02-27 10:08] VITALS: BP 180/96; PULSE 84; RESP 21; O2SAT 100
--- NOTE | 2025-02-27 10:15 | RAD_ITS ---
PROCEDURE: CHEST PA AND LATERAL 02/27/2025 REASON FOR EXAM: HTN TECHNIQUE: Procedure Code: RADCXR Modality: DX Procedure: CHEST PA AND LATERAL COMPARISON: November 28, 2024 FINDINGS: Heart size and mediastinal configuration are within normal limits. There is no focal infiltrate or consolidation. There is no pneumothorax or effusion. There is no acute bony abnormality. There is no visible atherosclerosis. RAD/Chest PA and Lateral IMPRESSION: No acute process is identified in the chest. Reading Location: [facility]
[2025-02-27 10:31] LABS: Anion Gap 9 (5-15); BUN 15 mg/dL (4-19); BUN/Creat Ratio 16.1 RATIO (10-20); Calcium,Total 9.2 mg/dL (7.6-11.0); Carbon Dioxide 26.5 mmol/L (21.0-32.0); Chloride 103 mmol/L (98-108); Estimated Creatinine Clearance 79.98 ml/min (50-250); Glucose 87 mg/dL (70-99); Magnesium 2.1 mg/dL (1.5-2.2); Potassium 4.1 mmol/L (3.3-5.1); Troponin T High Sensitivity 8 ng/L (<=14)
[2025-02-27] MEDS: 0.9% Normal Saline (1000mL) 1,000 ML 999 ML IV (10:35)
--- NOTE | 2025-02-27 10:48 | CM.ED ---
Social work Reason for referral: no PCP/insurance Referral source: case find SW entered patient's room, introducing self and role at [facility]. Patient welcomed SW visit and patient's toddler son was at bedside. Patient confirmed lacking PCP and insurance; patient accepted resources of [facility] Provider Directory and Shelli Knight information. Patient asked SW to place paperwork in patient's purse to keep them away from patient's son. Patient's son was becoming restless, so SW provided paper and crayons as well. Patient's , Eric, was entering as SW was leaving room. No further needs identified at this time. Tianna Damon, PLATING TANK OPERATOR, [employer]PER[employer]OR
[2025-02-27 11:00] VITALS: BP 169/75; PULSE 104; RESP 26; O2SAT 100
[2025-02-27 11:19] VITALS: BP 169/75; PULSE 104; RESP 26; TEMP 36.5; O2SAT 100
== END 2025-02-27 11:26 | disposition home or self-care (01) ==
PROVIDERS: Emergency Provider Surgery; Visit Provider Surgery
DX: I16.0 Hypertensive urgency (principal); I10 Essential (primary) hypertension; R20.0 Anesthesia of skin; R20.2 Paresthesia of skin; Z91.148 Patient's other noncompliance with medication regimen for other reason
CPT/HCPCS: 70450; 70496; 70498; 71046; 80048; 83735; 84484; 85025; 93005; 96361; 96374; 99284; Q9967; A4216